=== PATIENT | male | born 1975 | race Caucasian/White ===

== ENCOUNTER 2018-08-08 21:33 | Emergency (ER) | payer MEDICAID ==
[~2018-08-08] VITALS: Ht 182.9 cm; Wt 97.0 kg
[2018-08-08 21:35] VITALS: BP 133/88
== END 2018-08-09 00:31 | disposition left against medical advice (07) ==
LOC: ER 21:33
DX: Z53.21 Procedure and treatment not carried out due to patient leaving prior to being seen by health care provider (principal); F17.200 Nicotine dependence, unspecified, uncomplicated; Z98.890 Other specified postprocedural states